=== PATIENT | female | born 1950 | race Caucasian/White ===

== ENCOUNTER 2021-01-24 15:03 | Emergency (ER) | payer MEDICARE, OTHER ==
[~2021-01-24] VITALS: Ht 157.5 cm; Wt 84.8 kg
[~2021-01-24 15:03] MED LIST: ASA81 MG PO; NORTRIPTYLINE 25 MG JT; SPIRIVA HANDIH18 MCG INH; TRAMADOL HCL-A1 EAC1 PO; Z.0.CRESTOR5 MG PO; Z.0.LEVOXYL125 MCG PO; Z.0.LYRICA100 MG PO; Z.0.SPIRIVA18 MCG
[2021-01-24] MEDS ORDERED: IBUPROFEN 600 MG TAB PO STA (15:19)
[2021-01-24] MEDS ORDERED: IBUPROFEN600 MG PO (15:25)
[2021-01-24] MEDS ORDERED: IBUPROFEN 600 MG TAB ONE (15:33)
== END 2021-01-24 16:00 | disposition home or self-care (01) ==
LOC: FSED 15:13
DX: S93.401A Sprain of unspecified ligament of right ankle, initial encounter (principal); X50.1XXA Overexertion from prolonged static or awkward postures, initial encounter; Y93.01 Activity, walking, marching and hiking; Y92.89 Other specified places as the place of occurrence of the external cause; I10 Essential (primary) hypertension; J44.9 Chronic obstructive pulmonary disease, unspecified; E78.5 Hyperlipidemia, unspecified; I48.91 Unspecified atrial fibrillation; G62.9 Polyneuropathy, unspecified
CPT/HCPCS: 99282

== ENCOUNTER 2021-04-20 18:59 | Emergency (ER) | payer MEDICARE, OTHER ==
[~2021-04-20] VITALS: Ht 157.5 cm; Wt 79.4 kg
[~2021-04-20 18:59] MED LIST changes: +IBUPROFEN600 MG PO
[2021-04-20] MEDS ORDERED: NAPROSYN500 MG PO (20:47)
[2021-04-20 21:00] VITALS: BP 135/66
== END 2021-04-20 21:00 | disposition home or self-care (01) ==
LOC: FSED 19:20
DX: M25.551 Pain in right hip (principal); W01.0XXA Fall on same level from slipping, tripping and stumbling without subsequent striking against object, initial encounter; Y92.008 Other place in unspecified non-institutional (private) residence as the place of occurrence of the external cause; G62.9 Polyneuropathy, unspecified; I10 Essential (primary) hypertension; E78.5 Hyperlipidemia, unspecified; J44.9 Chronic obstructive pulmonary disease, unspecified
CPT/HCPCS: 72170; 99283